=== PATIENT | female | born 1935 | race Caucasian/White ===

== ENCOUNTER → 2016-12-19 | Outpatient (CLI) | payer MEDICARE, OTHER ==
[~2016-12-19] MED LIST: AMLO5TAB4 PO; APIX5TAB PO; ASPI-650 PO; REGADENOSON 0.4 MG/5 ML SYRINGE ONE; SOTA80TA18 PO
== END | disposition home or self-care (01) ==
LOC: CFH 08:33
PROVIDERS: ATTEND Internal Medicine Cardiovascular Disease
DX: I10 Essential (primary) hypertension (principal); I48.0 Paroxysmal atrial fibrillation; K30 Functional dyspepsia
CPT/HCPCS: 78452; 93017; A9502; J2785